=== PATIENT | male | born 1990 | race Two or more races ===

== ENCOUNTER 2017-08-28 13:23 | Emergency (ER) | payer BC, OTHER ==
[2017-08-28 13:31] VITALS: BP 140/86
[2017-08-28] MEDS ORDERED: LIDOCAINE 1% INJ-PF (10 MG/ML) 30 ML SDV ONE (14:01)
[2017-08-28] MEDS ORDERED: LIDOCAINE 1% INJ-PF (10 MG/ML) 30 ML SDV INJ ONE (14:01)
[2017-08-28] MEDS ORDERED: DIPH/PERTUSS(ACELL)/TETANUS VAC/PF 0.5 ML SYR (>=10YO) IM ONE (14:02)
--- NOTE | 2017-08-28 14:06 | ER Document Report ---
ED General - General Chief Complaint: Laceration Stated Complaint: LEFT HAND INJURY Time Seen by Provider: 08/28/17 13:52 Mode of Arrival: Ambulatory Information source: Patient Notes: 27-year-old male with no reported past medical history presents with a left thumb laceration. Patient states that just prior to arrival he was attempting to kill a wasp when he accidentally put his hand through a window cutting himself. Tetanus is not up-to-date. Patient c/o aching throbbing pain, denies in sensation. Pain worse with movement. no meds taken. TRAVEL OUTSIDE OF THE [place] IN LAST 30 DAYS: No - HPI Onset: Just prior to arrival Onset/Duration: Sudden Quality of pain: Achy, Throbbing Severity: Mild Associated symptoms: None Exacerbated by: Denies Relieved by: Denies Similar symptoms previously: No Recently seen / treated by doctor: No - Related Data Allergies/Adverse Reactions: Shellfish * [Shellfish] Allergy (Verified 03/22/15 11:17) Past Medical History - General Information source: Patient - Social History Smoking Status: Current Every Day Smoker Cigarette use (# per day): Yes - 8-10 Smoking Education Provided: Yes Frequency of alcohol use: None Drug Abuse: None Lives with: Family Family History: None Patient has suicidal ideation: No Patient has homicidal ideation: No - Medical History Medical History: Negative - Immunizations Hx Diphtheria, Pertussis, Tetanus Vaccination: - unk Review of Systems - Review of Systems Notes: REVIEW OF SYSTEMS: CONSTITUTIONAL : Denies fever, chills, or sweats. Denies recent illness. Denies weight loss, recent hospitalizations. EENT: Denies visual changes, eye pain. Denies nasal or sinus congestion or discharge. Denies sore throat, oral lesions, difficulty swallowing. CARDIOVASCULAR: Denies chest pain. Denies palpitations. Denies lower extremity edema. RESPIRATORY: Denies cough, cold, or chest congestion. Denies shortness of breath, wheezing. GASTROINTESTINAL: Denies abdominal pain or distention. Denies nausea, vomiting , or diarrhea. Denies blood in vomitus, stools, or per rectum. Denies black, tarry stools. Denies constipation. GENITOURINARY: Denies difficulty urinating, painful urination, frequency, blood in urine, or vaginal discharge. MUSCULOSKELETAL: Denies back or neck pain or stiffness. Denies joint pain or swelling. SKIN: Laceration left thumb HEMATOLOGIC : Denies easy bruising or bleeding. LYMPHATIC: Denies swollen glands. NEUROLOGICAL: Denies confusion or altered mental status. Denies passing out or loss of consciousness. Denies dizziness or lightheadedness. Denies headache. Denies weakness or paralysis. Denies problems difficulty with ambulation, slurred speech. Denies sensory loss, numbness, or tingling. Denies seizures. PSYCHIATRIC: Denies anxiety or stress. Denies depression, suicidal ideation, or homicidal ideation. Denies visual or auditory hallucinations. Physical Exam - Vital signs Vitals: Temp Pulse Resp BP Pulse Ox 98.2 F 80 16 140/86 H 99 08/28/17 13:29 08/28/17 13:08/28/17 13:08/28/17 13:08/28/17 13:29 - Notes Notes: PHYSICAL EXAMINATION: GENERAL: Well-appearing, well-nourished and in no acute distress. HEAD: Atraumatic, normocephalic. EYES: Pupils equal round and reactive to light, extraocular movements intact, sclera anicteric, conjunctiva are normal. ENT: Nares patent, oropharynx clear without exudates. Moist mucous membranes. NECK: Normal range of motion, supple without lymphadenopathy LUNGS: Breath sounds clear to auscultation bilaterally and equal. No wheezes rales or rhonchi. HEART: Regular rate and rhythm without murmurs ABDOMEN: Soft, nontender, nondistended abdomen. No guarding, no rebound. No masses appreciated. Musculoskeletal: Normal range of motion, no pitting or edema. No cyanosis. NEUROLOGICAL: Cranial nerves grossly intact. Normal speech, normal gait. Normal sensory, motor exams PSYCH: Normal mood, normal affect. SKIN: 2 cm linear the left thumb. Cap refill less than 2 seconds. Course - Re-evaluation Re-evalutation: 08/28/17 21:23 Patient presented after accidental laceration to left thumb. wound initially with persistent bleeding. tourniquet applied, extremity elevated, homeostases achieved, sutures placed, tetanus updated, dressing placed. Wound care discussed. patient discharged in stable condition. - Vital Signs Vital signs: Temp Pulse Resp BP Pulse Ox 98.2 F 80 16 140/86 H 99 08/28/17 13:29 08/28/17 13:29 08/28/17 13:29 08/28/17 13:29 08/28/17 13:29 Procedures - Laceration/Wound Repair Left Thumb Time completed: 14:30 Wound length (cm): 2 Wound's Depth, Shape: Superficial, Linear Laceration pre-procedure: Sterile PPE donned, Betadine prep applied, Sterile drapes applied, Shur-Clens applied Anesthetic type: 1% Lidocaine Volume Anesthetic (mLs): 6 Wound explored: Clean Irrigated w/ Saline (mLs): 1,000 - irrigated for two minutes under running tap water Wound Debrided: Minimal Wound Repaired With: Sutures Suture Size/Type: 5:0 Number of Sutures: 7 Layer Closure?: No Post-procedure NV exam normal: Yes Complications: No Notes: 08/28/17 21:20 Patient had moderate bleeding. tourniquet appile to wrist and thumb, wound examined, can not find bleeding vessel. considered cauterization but achieved homestasis of wound prior. sutures placed without complication. Discharge - Discharge Clinical Impression: Thumb laceration Qualifiers: Encounter type: initial encounter Damage to nail status: without damage Foreign body presence: without foreign body Laterality: left Qualified Code(s): S61.012A - Laceration without foreign body of left thumb without damage to nail , initial encounter Disposition: HOME, SELF-CARE Instructions: Antibiotic Ointment Protection ([facility]), Laceration Care ([facility]), Tetanus Immunization Given ([facility]) Additional Instructions: Please return to the emergency department or your primary care physician's office in 10 days for suture removal. Follow up with your physician tomorrow for further care or return to the ED IMMEDIATELY if symptoms worsen or new concerns occur. If you cannot afford to follow up with your primary care physician a list of low cost clinics have been provided at the end of your discharge papers as well. Prescriptions: Ibuprofen [Motrin 600 Mg Tablet] 600 mg PO TID #15 tablet Forms: Elevated Blood Pressure
== END 2017-08-28 14:53 | disposition home or self-care (01) ==
LOC: ER 13:23
PROC: 0HQGXZZ Repair Left Hand Skin, External Approach (ICD-10-PCS; principal; 2017-08-28)
DX: S61.012A Laceration without foreign body of left thumb without damage to nail, initial encounter (principal); W25.XXXA Contact with sharp glass, initial encounter; Y92.009 Unspecified place in unspecified non-institutional (private) residence as the place of occurrence of the external cause; F17.210 Nicotine dependence, cigarettes, uncomplicated; Z91.013 Allergy to seafood; Z23 Encounter for immunization
CPT/HCPCS: 99282; 90471; 90715; 12001; J3490

== ENCOUNTER 2017-09-06 20:33 | Emergency (ER) | payer OTHER ==
[2017-09-06 20:41] VITALS: BP 128/76
--- NOTE | 2017-09-06 21:35 | ER Document Report ---
HPI - HPI Pain Level: Denies Notes: Patient is a 27-year-old male no significant past medical history who presents to the ED for suture removal of sutures that were placed to his left thumb about 9 days ago. Patient states that he has not had any bleeding or issues with his thumb since then. He is moving his thumb without difficulties. He has not noticed any redness, red streaks, or purulent discharge. No other concerns or complaints. Denies any headache, fever, chest pain, palpitations, syncope, cough, shortness of breath, wheeze, dyspnea, abdominal pain, nausea/ vomiting/diarrhea, numbness/tingling, muscle paralysis/weakness, or rash. - ROS Systems Reviewed and Negative: Yes All other systems reviewed and negative - CONSTITUTIONAL Constitutional: DENIES: Fever, Chills - EENT EENT: DENIES: Sore Throat, Ear Pain, Eye problems - NEURO Neurology: DENIES: Headache, Weakness, Vision blurred, Dizzinesss / Vertigo - CARDIOVASCULAR Cardiovascular: DENIES: Chest pain - RESPIRATORY Respiratory: DENIES: Trouble Breathing, Coughing - GASTROINTESTINAL Gastrointestinal: DENIES: Abdominal Pain, Black / Bloody Stools - URINARY Urinary: DENIES: Dysuria, Urgency, Frequency - MUSCULOSKELETAL Musculoskeletal: DENIES: Extremity pain Past Medical History - Social History Smoking Status: Unknown if Ever Smoked Family History: None Patient has suicidal ideation: No Patient has homicidal ideation: No Renal/ Medical History: Denies: Hx Peritoneal Dialysis - Immunizations Hx Diphtheria, Pertussis, Tetanus Vaccination: - unk Vertical Provider Document - CONSTITUTIONAL Agree With Documented VS: Yes Notes: PHYSICAL EXAMINATION: GENERAL: Well-appearing, well-nourished and in no acute distress. LUNGS: Breath sounds clear to auscultation bilaterally and equal. No wheezes rales or rhonchi. HEART: Regular rate and rhythm without murmurs, rubs, gallops. Musculoskeletal: Left thumb: FROM to passive/active. Strength 5+/5. N/V intact distal. Non-tender. Extremities: Peripheral pulses 2+. Capillary refill less than 3 seconds. NEUROLOGICAL: Normal speech, normal gait. Normal sensory, motor exams PSYCH: Normal mood, normal affect. SKIN: Lt thumb: No erythema, warmth, wound dehiscence, abscess, streaks, or purulent discharge. - INFECTION CONTROL TRAVEL OUTSIDE OF THE [place] IN LAST 30 DAYS: No Course - Re-evaluation Re-evalutation: 09/06/17 21:34 Patient is an afebrile, well-hydrated, 27-year-old male who presents to the ED for suture removal. Vitals are acceptable. PE is otherwise unremarkable for any neurovascular compromise, obvious tendon/ligament rupture, obvious fracture/ dislocation, septic joint, wound dehiscence. Sutures were removed successfully without any complications. Conservative measures for symptoms. Recheck with your PCM in 3-5 days. Return to the ED with any worsening/concerning symptoms otherwise as reviewed in discharge. Patient is in agreement. - Vital Signs Vital signs: Temp Pulse Resp BP Pulse Ox 98.7 F 77 20 128/76 H 96 09/06/17 20:41 09/06/17 20:41 09/06/17 20:41 09/06/17 20:41 09/06/17 20:41 Discharge - Discharge Clinical Impression: Encounter for removal of sutures Condition: Stable Disposition: HOME, SELF-CARE Instructions: Suture Removal Additional Instructions: Keep the skin clean Wash with soap and water Tylenol/ibuprofen if needed Monitor for any worsening symptoms Recheck with your PCM in 3-5 days Return to the ED with any worsening symptoms and/or development of fever, headache, chest pain, palpitations, syncope, shortness of breath, trouble breathing, abdominal pain, n/v/d, abscess, purulent discharge, red streaks, worsening swelling, or other worsening symptoms that are concerning to you. Forms: Elevated Blood Pressure Referrals: [facility] [Provider Group] - Follow up as needed
== END 2017-09-06 21:44 | disposition home or self-care (01) ==
LOC: ER 20:33
DX: S61.012D Laceration without foreign body of left thumb without damage to nail, subsequent encounter (principal); X58.XXXD Exposure to other specified factors, subsequent encounter

== ENCOUNTER 2019-12-16 10:57 | Emergency (ER) | payer BC, OTHER ==
--- NOTE | 2019-12-16 11:35 | ER Document Report ---
ED Medical Screen (RME) - General Chief Complaint: Dizziness Stated Complaint: DIZZINESS,BLOOD PRESSURE Time Seen by Provider: 12/16/19 11:30 Mode of Arrival: Ambulatory Information source: Patient Notes: 29-year-old male presented to ED for dizziness. He states he woke up very dizzy this morning drove to work got cold clammy and more dizzy. He came home and states his father did his blood pressure was 140s over 80s. He states he is not sure the exact numbers. States he did not have any nausea or vomiting. His mother and insisted that he come to the emergency room he states the only past medical history he has his migraines no surgical history. He does vape all day long does not use any alcohol or drugs. I have greeted and performed a rapid initial assessment of this patient. A comprehensive ED assessment and evaluation of the patient, analysis of test results and completion of medical decision making process will be conducted by an additional ED providers. TRAVEL OUTSIDE OF THE [place] IN LAST 30 DAYS: No - Related Data Allergies/Adverse Reactions: Shellfish * [Shellfish] Allergy (Verified 12/16/19 11:28) Past Medical History - Social History Chew tobacco use (# tins/day): No Frequency of alcohol use: None Drug Abuse: None Renal/ Medical History: Denies: Hx Peritoneal Dialysis - Immunizations Hx Diphtheria, Pertussis, Tetanus Vaccination: - unk Physical Exam - Vital signs Vitals: Temp Pulse Resp BP Pulse Ox 97.7 F 71 18 157/82 H 100 12/16/19 11:02 12/16/19 11:02 12/16/19 11:02 12/16/19 11:02 12/16/19 11:02 Course - Vital Signs Vital signs: Temp Pulse Resp BP Pulse Ox 97.7 F 71 18 157/82 H 100 12/16/19 11:02 12/16/19 11:02 12/16/19 11:02 12/16/19 11:02 12/16/19 11:02
[2019-12-16 12:13] LABS: ABSOLUTE EOSINOPHILS # (AUTO) 0.1 10^3/uL (0.0-0.6); ABSOLUTE LYMPHOCYTES (AUTO) 2.2 10^3/uL (0.5-4.7); ABSOLUTE MONOCYTES (AUTO) 0.5 10^3/uL (0.1-1.4); ABSOLUTE NEUT (AUTO) 3.5 10^3/uL (1.7-8.2); BASOPHILS % (AUTO) 0.3 % (0-2); EOSINOPHILS % (AUTO) 0.9 % (0-6); HEMATOCRIT 40.5 % (37.9-51.0); LYMPHOCYTES % (AUTO) 35.1 % (13-45); MEAN CORPUSCULAR HEMOGLOBIN 30.6 pg (27.0-33.4); MEAN CORPUSCULAR HGB CONC 34.7 g/dL (32.0-36.0); MEAN CORPUSCULAR VOLUME 88 fl (80-97); MONOCYTES % (AUTO) 8.2 % (3-13); PLATELET COUNT 276 10^3/uL (150-450); RED BLOOD COUNT 4.59 10^6/uL (4.35-5.55); RED CELL DISTRIBUTION WIDTH 13.3 % (11.5-14.0); SEGMENTED NEUTROPHILS % (AUTO) 55.5 % (42-78); TOTAL CELLS COUNTED % (AUTO) 100 %; WHITE BLOOD COUNT 6.2 10^3/uL (4.0-10.5)
[2019-12-16 12:17] LABS: APPEARANCE,URINE CLEAR; BILIRUBIN,URINE NEGATIVE (NEGATIVE); COLOR,URINE YELLOW; GLUCOSE, URINE NEGATIVE (NEGATIVE); KETONES,URINE NEGATIVE (NEGATIVE); LEUKOCYTE ESTERASE,URINE NEGATIVE (NEGATIVE); NITRITE,URINE NEGATIVE (NEGATIVE); PROTEIN,URINE NEGATIVE (NEGATIVE); URINE SPECIFIC GRAVITY 1.019; UROBILINOGEN,URINE NEGATIVE mg/dL (<2.0)
--- NOTE | 2019-12-16 12:25 | EKG REPORT ---
SEVERITY:- NORMAL ECG - SINUS RHYTHM : Confirmed by: Edy Kincaid MD 16-Dec-2019 12:24:12
[2019-12-16 12:33] LABS: ALBUMIN 4.6 g/dL (3.5-5.0); ALKALINE PHOSPHATASE 87 U/L (38-126); ANION GAP 8 (5-19); ASPARTATE AMINO TRANSFERASE 23 U/L (17-59); BILIRUBIN,DIRECT 0.2 mg/dL (0.0-0.4); BLOOD UREA NITROGEN 9 mg/dL (7-20); CALCIUM 9.9 mg/dL (8.4-10.2); CARBON DIOXIDE 27 mmol/L (22-30); CHLORIDE 105 mmol/L (98-107); CREATINE KINASE 52 U/L (55-170); GLUCOSE 108 mg/dL (75-110); POTASSIUM 4.3 mmol/L (3.6-5.0); TOTAL PROTEIN 7.5 g/dL (6.3-8.2)
[2019-12-16 12:46] LABS: CREATINE KINASE MB < 0.22 ng/mL (<4.55); TROPONIN I < 0.012 ng/mL
--- NOTE | 2019-12-16 12:49 | ER Document Report ---
ED General - General Chief Complaint: Dizziness Stated Complaint: DIZZINESS,BLOOD PRESSURE Time Seen by Provider: 12/16/19 11:30 Primary Care Provider: MEMO STARK FNP-C [Primary Care Provider] - Follow up as needed Mode of Arrival: Ambulatory TRAVEL OUTSIDE OF THE [place] IN LAST 30 DAYS: No - HPI Notes: Patient is a 29-year-old male with no medical history who presents with an episode of dizziness that occurred earlier this morning. Patient states around 5 AM this morning he got up for work and began feeling dizzy. He describes his dizziness as "his eyes spinning in his head" with mild blurred vision. He tried driving to work but continued to feel dizzy and came home. He took his blood pressure which was 148/80 and then proceeded to drink "6 bottles of water" and immediately felt better. He states the episode of dizziness lasted for about 3 hours. Patient reports a complete resolution of his dizziness and endorses mild headache currently. The only reason he came into the ED was because his mom and girlfriend asked him to. He denies chest pain, shortness of breath, fever, nausea, vomiting, abdominal pain, diarrhea, and dysuria. Patient reports an episode of vertigo in the past that presented similarly. Patient vapes daily but denies alcohol and recreational drug use. - Related Data Allergies/Adverse Reactions: Shellfish * [Shellfish] Allergy (Verified 12/16/19 11:28) Past Medical History - General Information source: Patient - Social History Smoking Status: Current Every Day Smoker - Vapes Chew tobacco use (# tins/day): No Frequency of alcohol use: None Drug Abuse: None Family History: None Patient has homicidal ideation: No Pulmonary Medical History: Reports: Hx Asthma - childhood Neurological Medical History: Reports: Hx Migraine Renal/ Medical History: Denies: Hx Peritoneal Dialysis - Immunizations Hx Diphtheria, Pertussis, Tetanus Vaccination: - unk Review of Systems - Review of Systems Constitutional: No symptoms reported EENT: See HPI Cardiovascular: No symptoms reported Respiratory: No symptoms reported Gastrointestinal: No symptoms reported Genitourinary: No symptoms reported Male Genitourinary: No symptoms reported Musculoskeletal: No symptoms reported Skin: No symptoms reported Hematologic/Lymphatic: No symptoms reported Neurological/Psychological: See HPI Physical Exam - Vital signs Vitals: Temp Pulse Resp BP Pulse Ox 97.7 F 71 18 157/82 H 100 10/01/20 11:02 12/16/19 11:02 12/16/19 11:02 12/16/19 11:02 12/16/19 11:02 - Notes Notes: PHYSICAL EXAMINATION: VITALS: Vitals reviewed and within normal limits. GENERAL: Well-appearing, well-nourished and in no acute distress. HEAD: Atraumatic, normocephalic. EYES: Pupils equal round and reactive to light, extraocular movements intact, sclera anicteric, conjunctiva are normal. ENT: nares patent, oropharynx clear without exudates. Moist mucous membranes. NECK: Normal range of motion, supple without lymphadenopathy. LUNGS: Breath sounds clear to auscultation bilaterally and equal. No wheezes rales or rhonchi. HEART: Regular rate and rhythm without murmurs. ABDOMEN: Soft, nontender, normoactive bowel sounds. No guarding, no rebound. No masses appreciated. EXTREMITIES: Normal range of motion, no pitting or edema. No cyanosis. NEUROLOGICAL: No focal neurological deficits. Moves all extremities spontaneously and on command. Normal cerebellar testing, steady even gait. Able to walk on heels and toes. Normal proprioception. PSYCH: Normal mood, normal affect. SKIN: Warm, Dry, normal turgor, no rashes or lesions noted. Course - Re-evaluation Re-evalutation: Patient is a 29-year-old male with no medical history who presents with an episode of dizziness that occurred this morning. Presentation of vertigo that appears most consistent with a benign peripheral vertigo. Vital signs within normal limits. Patient has no abnormal findings on exam. Normal cerebellar testing, steady even gait. Able to walk on heels and toes. Normal proprioception. Patient is not an elevated risk for a cerebellar infarction given age, absence of significant risk factors. Patient did have improvement of symptoms. I do not believe neurologic imaging is indicated at this time based on physical examination and clinical history. CBC, CMP, and UA are all normal. Patient will be discharged with recommendations to return should their symptoms worsen or they develop new concerning symptoms. Prescription for meclizine 25 mg 3 times daily PRN given. - Vital Signs Vital signs: Temp Pulse Resp BP Pulse Ox 98.1 F 72 15 128/83 H 100 12/16/19 13:28 12/16/19 13:28 12/16/19 13:28 12/16/19 13:28 12/16/19 13:28 - Laboratory Result Diagrams: 12/16/19 11:52 12/16/19 11:52 Laboratory results interpreted by me: 12/16/19 12/16/19 11:52 11:52 Creatine Kinase 52 L Urine Ascorbic Acid 20 H - EKG Interpretation by Me Additional EKG results interpreted by me: Sinus rhythm with a rate of 62. QTc 398. Normal axis. No T wave inversions or ST segment changes in consecutive leads. Discharge - Discharge Clinical Impression: Vertigo Condition: Stable Disposition: HOME, SELF-CARE Additional Instructions: Vertigo You have experienced an episode of vertigo -- a whirling dizziness which may be accompanied by nausea and vomiting or staggering. Vertigo is often caused by an irritation of the inner ear, in which case it is called labyrinthitis. It can also be a symptom of a degenerating inner ear, nerve damage, or brain injury. Your physician has evaluated you to determine whether any further testing is necessary. Vertigo is often treated with dramamine or meclizine. These medications are helpful, but stronger medication may be needed if you are vomiting. Rest in bed. You should not drive or operate machinery until completely better. It may take one to three weeks for recovery. If there are new symptoms, such as decreased hearing or vision, severe headache, weakness or faintness, or confusion, call the physician. Prescriptions: Meclizine HCl [Antivert 25 mg Tablet] 25 mg PO TID PRN #21 tablet PRN Reason: Referrals: MEMO STARK, [facility] [employer] APPRENTICE-C [Primary Care Provider] - Follow up as needed
[2019-12-16 13:29] VITALS: BP 128/83
== END 2019-12-16 13:28 | disposition home or self-care (01) ==
LOC: ER 10:57
DX: R42 Dizziness and giddiness (principal); R51.9 Headache, unspecified; F17.290 Nicotine dependence, other tobacco product, uncomplicated; Z91.013 Allergy to seafood
CPT/HCPCS: 36415; 80053; 81001; 82550; 82553; 84484; 85025; 93005; 93010; 99284